=== PATIENT | female | born 1970 | race Two or more races ===

== ENCOUNTER 2024-08-29 12:10 | Day surgery (SDC) | payer MEDICAID, SELFPAY ==
[2024-08-27 13:59] LABS: HCG Qualitative,Urine Negative
[2024-08-28 12:31] VITALS: BMI 32.2
[2024-08-29] VITALS (22 sets, daily range): BP systolic 121–191; BP diastolic 71–108; PULSE 63–76; RESP 16–20; TEMP 36.5–36.7; O2SAT 98–100; BMI 32.4
[2024-08-29] MEDS: fentaNYL CIT INJ 50 mCg/ML AMP 2ML (ASD USE ONLY) IV ×2 (14:17→14:28)
[2024-08-29] MEDS: MIDAZOLAM INJ 1 MG/ML VIAL 2 ML (ASD USE ONLY) 2 MG IV (14:17)
--- NOTE | 2024-08-29 15:33 | SUR.PHASEII ---
PATIENT INTO RECOVERY WITH NO ACUTE DISTRESS NOTED, V/S STABLE, PATIENT SMILING, REPOSITIONED FOR COMFORT. PATIENT PASSING FLATUS. REPORT RECEIVED FROM DIONNA HEATON.
== END 2024-08-29 16:07 | disposition home or self-care (01) ==
PROVIDERS: PCP Physician Assistant; Referring Provider Surgery; Visit Provider Surgery
PROC: 0DBE8ZX Excision of Large Intestine, Via Natural or Artificial Opening Endoscopic, Diagnostic (ICD-10-PCS; CPT 45380; principal; 2024-08-29 14:30)
DX: C18.7 Malignant neoplasm of sigmoid colon (principal); D12.0 Benign neoplasm of cecum; K63.5 Polyp of colon
CPT/HCPCS: 45385; 81025; A4217; A4649; J2250; J3010

== ENCOUNTER → 2024-10-03 | Outpatient (CLI) | payer MEDICAID, SELFPAY ==
--- NOTE | 2024-10-03 | XR_ITS ---
Examination: CT abdomen with intravenous contrast CT pelvis with intravenous contrast 2-D coronal reconstructions 2-D sagittal reconstructions Date and time of exam:October 03, 2024 0951 hours INDICATIONS: Diagnosis malignant neoplasm colon August 2024 staging. CTDI: vol (mGy) 16.9 DLP: (mGycm) 560 Technique: Multiple axial sections of the abdomen and pelvis have been obtained. 64 slice high-resolution scanner used. 3 mm axial sections have been obtained, post intravenous injection 60 cc [id number] 2-D sagittal, coronal reconstructions obtained. Low dose protocols were performed. One or more of the following dose reduction techniques were used; automated exposure control, adjustment of the mA and/or KV according to patient size, use of iterative reconstruction technique. Findings: No focal liver lesions or biliary tract dilatation Spleen is not enlarged No gallstones No pancreatic or adrenal mass No hydronephrosis No abdominal or pelvic lymphadenopathy No pelvic mass Urinary bladder intact Moderate osteopenia IMPRESSION: No focal liver lesions No abdominal or pelvic lymphadenopathy Consider PET CT scan staging follow-up
[2024-10-03 09:06] LABS: HCG Qualitative,Urine Negative
== END | disposition home or self-care (01) ==
LOC: SCAT 08:59 → CCTX 09:04
PROVIDERS: PCP Physician Assistant; Referring Provider Surgery; Visit Provider Surgery
DX: C18.0 Malignant neoplasm of cecum (principal); Z32.00 Encounter for pregnancy test, result unknown
CPT/HCPCS: 74177; 81025; A4649; Q9967

== ENCOUNTER 2024-10-30 12:03 | Inpatient (IN) | payer MEDICAID, SELFPAY ==
[2024-10-26 06:59] VITALS: BMI 32.5
[2024-10-26 09:10] LABS: Basophils # (Auto) 0.1 Thou/mm3 (0.0-0.2); Basophils % (Auto) 1 % (0-2.5); Eosinophils # (Auto) 0.3 Thou/mm3 (0.0-0.5); Eosinophils % (Auto) 4 % (0-10); Hematocrit 44.4 % (36.0-46.0); Hemoglobin 14.9 g/dL (12.0-16.0); Immature Granulocytes % (Auto) 0 % (0-0); Immature Granulocytes Auto 0.03 Thou/mm3 (0.00-0.00); Lymphocytes # (Auto) 2.7 Thou/mm3 (1.0-4.8); Lymphocytes % (Auto) 32 % (10-50); Mean Corpuscular HGB Conc 33.6 g/dl (31.0-37.0); Mean Corpuscular Volume 86 fL (80-100); Monocytes # (Auto) 0.4 Thou/mm3 (0.0-0.8); Monocytes % (Auto) 5 % (0-12); Neutrophils # (Auto) 4.7 Thou/mm3 (1.8-7.7); Neutrophils % (Auto) 58 % (37-80); Nucleated Red Blood Cell % 0 /100 WBC (0); Platelet Count 232 Thou/mm3 (140-440); RDW Standard Deviation 40.4 fL (36.4-46.3); Red Blood Count 5.14 Miln/mm3 (4.00-5.20); White Blood Count 8.2 Thou/mm3 (3.6-11.0)
[2024-10-26 09:25] LABS: Alanine Aminotransferase 21 U/L (10-49); Albumin, Serum 4.6 gm/dL (3.5-5.0); Albumin/Globulin Ratio 1.5 (1.2-2.2); Alkaline Phosphatase 72 U/L (46-116); Anion Gap 8 (7-16); Aspartate Amino Transferase 25 U/L (0-34); BUN/Creatinine Ratio 13 Ratio (12-20); Bilirubin,Total 0.4 mg/dL (0.3-1.2); Blood Urea Nitrogen 9 mg/dL (9-23); Calcium 9.6 mg/dL (8.3-10.6); Calcium (Corrected) 9.6 mg/dL (8.5-10.1); Carbon Dioxide 28.2 mMol/L (20.0-31.0); Chloride 108 mMol/L (98-107); Creatinine (Component) 0.7 mg/dL (0.6-1.3); Estimated Creatinine Clearance 81.8 mL/min (>60); Globulin 3.1 gm/dL (2.3-3.5); Glucose 91 mg/dL (74-106); Osmolality,Calculated 285 (275-295); Potassium 4.2 mMol/L (3.4-5.1); Sodium 144 mMol/L (136-145); Total Protein 7.7 gm/dL (5.7-8.2); eGFR > 60 See Note
[2024-10-26 09:30] LABS: Partial Thromboplastin Time 29.7 Seconds (22.0-36.0); Prothrombin Time 11.4 Seconds (9.0-12.2)
[2024-10-30] VITALS (21 sets, daily range): BP systolic 125–166; BP diastolic 71–94; PULSE 53–82; RESP 12–97; TEMP 36.2–36.8; O2SAT 95–100; BMI 34.0; BMI 32.4
[2024-10-30] MEDS: RINGERS LACTATED 1000 ML 1,000 ML 20 ML IV (07:42)
--- NOTE | 2024-10-30 08:15 | CHAP ---
Cisco's daughter translated for me. I prayed with patient before her procedure.
--- NOTE | 2024-10-30 11:46 | SUR.PHASEI ---
pt received from OR in recovery bay 5. pt obtunded, breathing unlabored on oxymask 8l, oral airway in place. v/s stable. pt dressing to abd cdi. report received from Cori HEATON and Dr. Davidson.
--- NOTE | 2024-10-30 12:28 | SUR.PHASEII ---
Received report on pt. s/p surgery from Judson HEATON. Pt. is resting, eyes closed, VSS, dressing to medial abdomen CDI, melendez catheter intact, pt. allowed to rest, awaiting room assignment.
[2024-10-30] MEDS: CEFOXITIN 2 GM in SODIUM CHLORIDE 0.9% (P) 50 ML IV (13:11)
--- NOTE | 2024-10-30 13:22 | SUR.PHASEII ---
pt able to tolerate ice chips without difficulty swallowing or nausea/vomiting.
[2024-10-30] MEDS: fentaNYL CIT INJ 50 mCg/ML AMP 2ML 25 MCG IV (14:01)
--- NOTE | 2024-10-30 16:14 | SUR.PHASEII ---
pt awake and alert, breathing unlabored on room air. v/s stable. pt dressing to abd cdi. report called to Yeny HEATON. pt will be transferred to room at this time.
[2024-10-30] MEDS: SODIUM CHLORIDE 0.9% 1000 ML 1,000 ML 100 ML IV (17:13)
[2024-10-30] MEDS: KETOROLAC INJ 30 MG/ML VIAL IVP (17:52)
[2024-10-30] MEDS: MORPHINE SULF INJ 10 MG/ML VIAL 4 MG IVP (20:31)
[2024-10-31] VITALS (8 sets, daily range): BP systolic 121–144; BP diastolic 65–86; PULSE 66–81; RESP 16–97; TEMP 35.7–36.8; O2SAT 93–97
[2024-10-31] MEDS: KETOROLAC INJ 30 MG/ML VIAL IVP ×2 (00:58→09:00)
[2024-10-31] MEDS: MORPHINE SULF INJ 10 MG/ML VIAL 4 MG IVP ×3 (01:53→22:14)
[2024-10-31 05:21] LABS: Basophils % (Auto) 0 % (0-2.5); Eosinophils % (Auto) 0 % (0-10); Hematocrit 37.4 % (36.0-46.0); Hemoglobin 12.9 g/dL (12.0-16.0); Immature Granulocytes % (Auto) 0 % (0-0); Immature Granulocytes Auto 0.06 Thou/mm3 (0.00-0.00); Lymphocytes # (Auto) 1.4 Thou/mm3 (1.0-4.8); Lymphocytes % (Auto) 10 % (10-50); Mean Corpuscular HGB Conc 34.5 g/dl (31.0-37.0); Mean Corpuscular Hemoglobin 29.4 pg (25.0-35.0); Mean Corpuscular Volume 85 fL (80-100); Monocytes # (Auto) 0.6 Thou/mm3 (0.0-0.8); Monocytes % (Auto) 4 % (0-12); Neutrophils # (Auto) 12.5 Thou/mm3 (1.8-7.7); Neutrophils % (Auto) 86 % (37-80); Nucleated Red Blood Cell % 0 /100 WBC (0); Platelet Count 222 Thou/mm3 (140-440); RDW Standard Deviation 39.7 fL (36.4-46.3); Red Blood Count 4.39 Miln/mm3 (4.00-5.20); White Blood Count 14.6 Thou/mm3 (3.6-11.0)
[2024-10-31] MEDS: SODIUM CHLORIDE 0.9% 1000 ML 1,000 ML 100 ML IV ×3 (05:35→22:14)
[2024-10-31 05:41] LABS: Anion Gap 10 (7-16); Carbon Dioxide 21.8 mMol/L (20.0-31.0); Chloride 107 mMol/L (98-107); Potassium 3.6 mMol/L (3.4-5.1); Sodium 139 mMol/L (136-145)
--- NOTE | 2024-10-31 11:52 | PC.SS ---
Patient Adele Hill is a 54 Year old female admitted for Sigmoid Colon Resection. SS met with patient at bedside to complete initial assessment, patient appeared to be alert and oriented. Patient reports she lives at home with her daughter, Kimberly Moon who she reports is surrogate decision maker [phone]. Patient reports her PCP is Sherlyn Dukes. Choice of pharmacy is [facility]. Patient reports that prior to admission she did not utilize any source of DME to assist with ambulation. Patient is able to complete all ADL's independently. At time of discharge patient will return home. Family will provide transportation. Next of Kin, Daughter Discharge plan: Home
--- NOTE | 2024-10-31 16:47 | PD.SURPROG ---
Documentation for date of: 10/31/24 Subjective Subjective Narrative: The patient is comfortable in the first today after surgery. She is tolerating pain with Exam Vital Signs Temp Pulse Resp BP Pulse Ox O2 Del Method O2 Flow Rate 97.6 F 68 16 144/86 H 96 Room Air 2 10/31/24 12:00 10/31/24 12:00 10/31/24 12:00 10/31/24 12:00 10/31/24 12:00 10/31/24 12:00 10/30/24 12:15 Vital signs are normal Routine Abdominal Exam Comments: Abdominal examination is benign Results Results: Laboratory Laboratory Narrative: Laboratory results show leukocytosis probably secondary to surgery Assessment & Plan Assessment Additional comments: Impression: Stable postoperative course Plan Plan: We shall DC IV and start her on clear liquids and increase ambulation.
--- NOTE | 2024-10-31 18:17 | PC.NURSE ---
Patient urinated and is walking the hallway with daughters assistance. Will continue to monitor patient.
[2024-11-01] VITALS (8 sets, daily range): BP systolic 120–134; BP diastolic 79–87; PULSE 62–78; RESP 16–98; TEMP 36.1–36.8; O2SAT 95–98
[2024-11-01 05:32] LABS: Basophils % (Auto) 0 % (0-2.5); Eosinophils % (Auto) 0 % (0-10); Hematocrit 34.1 % (36.0-46.0); Hemoglobin 11.6 g/dL (12.0-16.0); Immature Granulocytes % (Auto) 0 % (0-0); Immature Granulocytes Auto 0.04 Thou/mm3 (0.00-0.00); Lymphocytes # (Auto) 2.4 Thou/mm3 (1.0-4.8); Lymphocytes % (Auto) 21 % (10-50); Mean Corpuscular Hemoglobin 29.4 pg (25.0-35.0); Mean Corpuscular Volume 86 fL (80-100); Monocytes # (Auto) 0.6 Thou/mm3 (0.0-0.8); Monocytes % (Auto) 5 % (0-12); Neutrophils # (Auto) 8.5 Thou/mm3 (1.8-7.7); Neutrophils % (Auto) 73 % (37-80); Nucleated Red Blood Cell % 0 /100 WBC (0); Platelet Count 186 Thou/mm3 (140-440); RDW Standard Deviation 40.3 fL (36.4-46.3); Red Blood Count 3.95 Miln/mm3 (4.00-5.20); White Blood Count 11.6 Thou/mm3 (3.6-11.0)
[2024-11-01] MEDS: MORPHINE SULF INJ 10 MG/ML VIAL 4 MG IVP ×3 (08:02→19:10)
--- NOTE | 2024-11-01 09:55 | PC.SS ---
SS follow up note; SS was contacted by patient's nurse Bryanna reported that Patient's daughter would like to speak to SS. SS met with patient's daughter, Kimberly and she informed SS that she would like patient to transition to hospice services. SS asked patient's daughter if she had a preference in regards to hospice Agency and patient's daughter reported she did not. SS informed her that the hospital utilizes a rotation for the day and if she would be agreeable to have the hospice agency of the day follow patient. Patient's daughter verbalized understanding and is agreeable to have [facility] follow patient. Patient's daughter would like patient to discharge to SNF, however SS contacted Becca from [facility] and she reported they do not have a hospice bed available. SS updated patient's daughter and she would like for to submit to other facilities. will submit hospice referral and SNF referral through [facility]. SS updated Dr. Yeager. Transfer was cancelled.
--- NOTE | 2024-11-01 11:35 | PD.SURPROG ---
Documentation for date of: 11/01/24 Subjective Subjective Narrative: The patient is feeling better and has less pain. She is passing gas and had a bowel movement early this morning. Exam Vital Signs Temp Pulse Resp BP Pulse Ox O2 Del Method O2 Flow Rate 97.2 F 78 22 H 134/87 H 98 Room Air 2 11/01/24 04:00 11/01/24 07:36 11/01/24 07:36 11/01/24 04:00 11/01/24 04:00 11/01/24 04:00 11/01/24 00:00 Her vital signs are normal Routine Abdominal Exam Comments: Abdominal examination showed that the hipolito are in place and she has bowel sounds Results Results: Laboratory Laboratory Narrative: Laboratory workup shows WBC returning to normal level Assessment & Plan Assessment Additional comments: Impression: Stable postoperative course following sigmoid colon resection Plan Plan: We shall advance diet to regular diet and then if she tolerates it well hopefully we can discharge her tomorrow.
[2024-11-02] VITALS: BP 107/78; PULSE 92; RESP 18; TEMP 36.5; O2SAT 95
[2024-11-02] MEDS: KETOROLAC INJ 30 MG/ML VIAL IVP (03:31)
[2024-11-02 04:00] VITALS: BP 130/88; PULSE 77; RESP 18; TEMP 36.2; O2SAT 96
[2024-11-02 08:00] VITALS: BP 116/78; PULSE 80; RESP 17; TEMP 36.2; O2SAT 98
--- NOTE | 2024-11-02 11:40 | CHAP ---
Patient was visited by the Spiritual Care Volunteer who prayed for them. (Volunteer was in the hospital from c 10:09-11:40)
[2024-11-02 12:00] VITALS: BP 124/90; PULSE 69; RESP 18; TEMP 36.3; O2SAT 95
[2024-11-02] MEDS: MORPHINE SULF INJ 10 MG/ML VIAL 4 MG IVP (13:41)
--- NOTE | 2024-11-02 14:18 | PD.SURPROG ---
Documentation for date of: 11/02/24 Subjective Subjective Narrative: Patient is tolerating diet and having regular bowel movements Exam Vital Signs Temp Pulse Resp BP Pulse Ox O2 Del Method O2 Flow Rate 97.4 F 69 18 124/90 H 95 Nasal Cannula 1 11/02/24 12:00 11/02/24 12:00 11/02/24 12:00 11/02/24 12:00 11/02/24 12:00 11/02/24 12:00 11/02/24 12:00 Her vital signs are normal Routine Abdominal Exam Comments: Abdominal examination is negative Assessment & Plan Assessment Additional comments: Impression: Stable postoperative course following sigmoid colon resection Plan Plan: We shall discharge the patient today and follow her up in my office next Tuesday
--- NOTE | 2024-11-02 21:34 | PD.SUROPNT ---
Date of Procedure 10/30/24 Pre Op Diagnosis Invasive adenocarcinoma in the polyp of the sigmoid colon 40 cm from the anal verge Post Op Diagnosis Same Procedure Explored laparotomy and sigmoid colon resection and primary anastomosis Incidental appendectomy Findings Patient is found to have a nonpalpable lesion over the sigmoid colon and I identified this area because of the tattooing done during the colonoscopy. At the time I removed a fair amount of polyps but I had a strong suspicion that this lesion may be malignant and therefore tattooing was performed with a spot marker at the time of colonoscopy. Patient did not have any liver metastasis or any peritoneal nodules Procedure Description After the patient was brought to the operating room she was given 2 g of Mefoxin. She underwent endotracheal intubation and abdomen was prepped with ChloraPrep solution and draped in a sterile manner. Charlton catheter was inserted. Timeout was performed. Then a lower midline incision was made starting from the umbilicus down towards the pubic symphysis. After entering abdominal cavity I explored the abdomen and found out that sigmoid colon that was tattooed was redundant and I did not have to mobilize the splenic flexure. I felt the resection could be satisfactorily performed on the anastomosis can be accomplished without tension. I started making incision on the medial side of the sigmoid colon at the aortic bifurcation and I isolated the inferior mesenteric artery. This was ligated doubly with 0 silk and divided. Then I mobilized the sigmoid colon bilateral dissection avoiding injury to the left ureter. I used harmonic fidelia to control the mesenteric bleeding. Then I used a JOSE ALFREDO 55 to divide the sigmoid colon distally giving a good margin from the tattooed site. Then I performed the same thing on the superior margin. A wedge of mesentery was removed using harmonic fidelia. Then the sigmoid colon was removed with measured about 7 inches approximately in length. Then the end of the colon was anastomosed easily using 3-0 silk suture for serosal layer and 3-0 chromic for the inner layer for the bowel wall. At the end I placed another low serosal layer anteriorly to complete the anastomosis. At the end the anastomosis was palpated and was found to be patent. Then the rent in the mesentery was closed with a running 0 Vicryl. I also performed incidental appendectomy by dividing the mesoappendix with harmonic fidelia and tying the base with 2-0 silk. Then the end was divided and coagulated with cautery. Then wound was irrigated extensively and checked for the bleeding points. Then I closed the peritoneum in a running 0 PDS. Then the anteriorly the fascia was closed with #1 strata fix. The subcutaneous tissue was closed with 3-0 chromic and injected large amounts of Marcaine and the skin was closed with hipolito. Dressing was applied with Adaptic and 4 x 4 gauze and patient tolerated the procedure well and returned to recovery room in stable condition. At the end of the procedure I opened the sigmoid colon which was tattooed and found no mucosal lesion. This was surprised to me because I felt that there should be some residual lesion at the site of polypectomy and biopsy. But none was found. I asked the pathologist to look at this and he was not sure that there was any residual lesion also. But he will do permanent section and make a report. I strongly felt that the area involved has been resected because it has been more by tattooing. This lesion is not palpable on the any further attempt to resect additional sigmoid colon would be difficult and not indicated at this time. I entertained the possibility that the patient may require another colonoscopy only if there is any lesion seen she may require another surgery. But at this time because I was certain about the location of the polyp I did not do any further exploration I also performed Anesthesia GETA Pathology / specimen Other (Sigmoid colon containing the polyp with adenocarcinoma) Estimated Blood Loss 150 Surgeon Juliet Shelton MD Surgical Staff Operation Date: 10/30/24 08:15 Case Staff Anesthesiologist: Garrett Davidson RN First Assistant: Kaylee Vergara
--- NOTE | 2024-11-05 13:53 | ESDS_ITS ---
RE: PATRIC AMIN : 1970 DATE OF ADMISSION: 10/30/2024 DATE OF DISCHARGE: 11/02/2024 15:47 DATE OF ADMISSION: 10/30/2024 DATE OF DISCHARGE: 11/02/2024 FINAL DIAGNOSIS: Invasive adenocarcinoma of the sigmoid colon. PROCEDURE DONE: Sigmoid colon resection. REASON FOR ADMISSION: This patient was admitted because of biopsy-proven sigmoid colon carcinoma seen at 40 cm from the anal verge during colonoscopy 2 months ago and I tattooed the area at the site of the polypectomy in sigmoid colon. The patient was admitted after mechanical and chemical bowel prep with antibiotic. She underwent sigmoid colon resection and primary anastomosis. Her postoperative course was uneventful and the patient was discharged on third postoperative day. At the time of discharge, she was tolerating regular diet and was having normal bowel functions. The patient will be seen in my office for a follow-up on Tuesday11/09/2024. At the time of discharge, he was given Point Clear 5/325 about 20 tablets for pain control. DT: 14:25:07 TT: 21:34:00 Ref: [id number] - TID: [id number] MTDD
== END 2024-11-02 15:47 | disposition home or self-care (01) | DRG 231 ==
LOC: S3NX 10-31 07:18
PROVIDERS: Admitting Provider Surgery; PCP Physician Assistant; Referring Provider Surgery; Visit Provider Surgery
PROC: 0DTN0ZZ Resection of Sigmoid Colon, Open Approach (ICD-10-PCS; principal; 2024-10-30 08:00)
DX: C18.7 Malignant neoplasm of sigmoid colon (principal); E66.9 Obesity, unspecified; Z68.31 Body mass index [BMI] 31.0-31.9, adult
CPT/HCPCS: 36415; 80051; 80053; 85025; 85610; 85730; 94664; A4217; A4649; J0131; J0694; J1100; J1885; J2250; J2270; J2405; J2704; J3010; J3490; J7030; J7050; J7120

== ENCOUNTER 2025-03-07 13:40 | Day surgery (SDC) | payer MEDICAID, SELFPAY ==
[2025-03-06 12:17] VITALS: BMI 36.8
[2025-03-07] VITALS (22 sets, daily range): BP systolic 122–195; BP diastolic 75–129; PULSE 56–93; RESP 12–25; TEMP 36.4–36.9; O2SAT 94–100; BMI 30.8
[2025-03-07] MEDS: RINGERS LACTATED 1000 ML 1,000 ML 125 ML IV (14:48)
[2025-03-07] MEDS: fentaNYL CIT INJ 50 mCg/ML AMP 2ML (ASD USE ONLY) IVP ×3 (14:48→15:53)
[2025-03-07] MEDS: MIDAZOLAM INJ 1 MG/ML VIAL 2 ML (ASD USE ONLY) 2 MG IVP ×3 (14:50→15:53)
[2025-03-07] MEDS: hydrALAZINE INJ 20 MG/ML VIAL 10 MG IVP (15:05)
[2025-03-07] MEDS: ONDANSETRON INJ 2 MG/ML INJ 2 ML 4 MG IVP (15:12)
== END 2025-03-07 16:54 | disposition home or self-care (01) ==
PROVIDERS: PCP Physician Assistant; Referring Provider Surgery; Visit Provider Surgery
PROC: 0DBE8ZX Excision of Large Intestine, Via Natural or Artificial Opening Endoscopic, Diagnostic (ICD-10-PCS; CPT 45380; principal; 2025-03-07 13:00)
DX: Z12.11 Encounter for screening for malignant neoplasm of colon (principal); D12.4 Benign neoplasm of descending colon; D12.5 Benign neoplasm of sigmoid colon; K63.5 Polyp of colon
CPT/HCPCS: 45380; A4649; J0360; J2250; J2405; J3010; J7120

== ENCOUNTER 2025-04-02 10:19 | Outpatient (RCR) | payer MEDICAID, SELFPAY ==
--- NOTE | 2025-04-02 13:54 | CTCCONSULT_ITS ---
Abdifatah Chapman [facility] [address] [place], [place] [address] Consultation Note Date: 04/02/2025 MR#: [id number] Name: PATRIC ROGERS : 1970 Dx: C18.7 Malignant neoplasm of sigmoid colon Attending physician. Sherlyn Perales [facility] Referring physician. Esteban Azul MD Reason for consultation. Patient with sigmoid colon adenocarcinoma resection referred for adjuvant therapy at the cancer treatment [place]. History of Present Illness: Patient is a 55-year-old lady who on screening colonoscopy 08/29/2024 found to have polyps in several areas of the colon. Sigmoid colon polyp revealed invasive adenocarcinoma well-differentiated with no loss of expression in all 4 mismatch repair proteins. Polyps removed from the cecum and ascending colon were negative for malignancy or high-grade dysplasia. On 10/30/2024 underwent exploratory laparotomy sigmoid colon resection and primary anastomosis performed. According to op note there was a nonpalpable lesion over the sigmoid colon which was identified because of the tattooing done during colonoscopy. There was no liver mets or peritoneal nodules noted. Final path G1 well-differentiated adenocarcinoma greatest aggregate dimension 5.5 cm with invading at least into the submucosa with no perineural invasion and 1 of 13 lymph nodes positive for mets. pT1pN1. Testing for mismatch repair no loss of nuclear expression. Appendix removed was benign. Dr. Orellana stated that patient was reluctant to have chemo referral after initial surgery. On 03/07/2025 patient underwent colonoscopy with additional polyps were noted in descending colon and 2 others on the sigmoid region which were all benign. Preop abdomen pelvis 10/03/2024 showed no focal lesions abdominal pelvic lymphadenopathy. Past medical history. Denies other than above Meds. 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 Denies cancer in family Review of Systems: Noncontributory Physical Exam: General: Adequately nourished appearing lady in no acute distress HEENT: Atraumatic normocephalic extraocular is intact no oral lesions no cervical or supraclavicular adenopathy CV: Chest clear that she has a heart regular rate and rhythm ABD: Soft no organomegaly well-healed abdominal scar EXT: No signs of clubbing edema Assessment: 1. Patient with stage IIIA pT1pN1 no loss of expression mismatch repair. Status post sigmoid colon resection primary anastomosis 10/30/2024 Dr Orellana 2. Adjuvant chemo apparently delayed by some reluctance on patient's part. Will have patient see Dr. Echo tovar. 2. Port placement Dr. Orellana 3. PET scan for staging. 4. Thank you for referring patient to the cancer treatment center. Electronically signed by: Duncan Rincon MD, DABR 04/02/2025 1:52 PM
== END 2025-04-11 23:59 | disposition home or self-care (01) ==
LOC: SCTC 10:19
PROVIDERS: PCP Physician Assistant; Referring Provider Surgery; Visit Provider Radiology Therapeutic Radiology
DX: C18.7 Malignant neoplasm of sigmoid colon (principal)
CPT/HCPCS: 99213; G0463

== ENCOUNTER 2025-05-10 10:09 | Outpatient (RCR) | payer MEDICAID, SELFPAY ==
--- NOTE | 2025-05-02 10:58 | CTCCONSULT_ITS ---
Patient: PATRIC ROGERS : 1970 MR#: [id number] Page 3 of 5 CONSULTATION NOTE DATE OF CONSULTATION: 05/02/2025 NAME: PATRIC ROGERS ACCOUNT: [id number] : 1970 AGE: 55 REFERRING PHYSICIAN: Sherlyn Grant MD PRIMARY PHYSICIAN: Sherlyn Grant MD REASON FOR VISIT: Colon cancer ONCOLOGY HISTORY: DIAGNOSIS: Malignant neoplasm of sigmoid colon [ICD10] C18.7; Malignant neoplasm of ascending colon [ICD10] C18.2 DATE OF DIAGNOSIS: 10/2024 STAGE/TNM: IIIA T1 N1 M0 TREATMENT HISTORY: Care?Plan Start?Date Cycle Day Intent mFOLFOX-6?-?5FU?400?+?2400?CIV,?LVR?400,OXALIplat?85 05/02/2025 1 14 Curative?(adjuvant) HISTORY OF PRESENT ILLNESS: 55-year-old female with new diagnosis of colon cancer . patient had screening colonoscopy and was diagnosed with cancer . OTHER MEDICAL HISTORY/CONDITIONS: Adenocarcinoma sigmoid colon - dx 09/08/2024 Exploratory Laporotomy; sigmoid resection and promary anastomosis; incidental appendectomy - FAMILY HISTORY: Patient?denies?family?cancer?history. SOCIAL HISTORY: Occupational?History:?Work at [employer] Education?Level:?Completed something less than 8th grade Marital?Status:? 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 5 YRS C NORPLANT X 3 YRS :?3 Live?Births:?3 Age?1st?:?23 MEDICATIONS: 1. No Medications Medications Last Reconciled by Nell Liu RN on 05/02/2025 ALLERGIES: No Known Drug Allergies REVIEW OF SYSTEMS: A complete 14-point review of systems was performed and is negative except as noted in interval history. PHYSICAL EXAMINATION: VITAL SIGNS: Temperature?99.2, B/P?133/82, Height?59?inches, Oxygen?Saturation?95% Weight?161?lbs (Change?since?04/02/25:?1?lbs) PAIN: 0 - No pain ECOG Performance Status: 1 - Symptomatic; ambulatory; restricted in strenuous activity GENERAL APPEARANCE: Appears well, in no apparent distress, appropriately interactive. HEENT: Normocephalic, no temporal wasting, normal conjunctiva, no scleral icterus, normal hearing, lips without lesions, neck normal range of motion. CARDIOVASCULAR: Not assessed. PULMONARY: Normal respiratory effort, no respiratory distress or use of accessory muscles, speaking in full sentences, no tachypnea. EXTREMITIES: No pedal edema or cyanosis. SKIN: Normal skin appearance. NEUROLOGIC: Alert and oriented x4. PSHYCHIATRIC: Appropriate affect, mood normal, behavior normal, intact thought and speech. LABORATORY DATA: I have personally reviewed and interpreted each of the patient?s relevant lab tests, abnormal findings are below: Date ASSESSMENT/PLAN: Stage 3 A colon adenocarcinoma Need adjuvant therapy with folfox or capeox Port placemnt Discussed side effects of chemotherapy Ctart chemotherapy Naterra for mrd ORDERS: Order # Description [id number] + CEA [id number] Infusion 5 Hours [id number] Discontinue CIV Pump [id number] CBC + Comprehensive Metabolic Panel + CEA [id number] Lab Appointment [id number] Follow Up Appointment [id number] Infusion 5 Hours [id number] Discontinue CIV Pump [id number] CBC + Comprehensive Metabolic Panel + CEA [id number] Lab Appointment [id number] Follow Up Appointment [id number] Infusion 5 Hours [id number] Discontinue CIV Pump [id number] CBC + Comprehensive Metabolic Panel + CEA [id number] Lab Appointment [id number] Follow Up Appointment [id number] Infusion 5 Hours [id number] Discontinue CIV Pump [id number] CBC + Comprehensive Metabolic Panel + CEA [id number] Lab Appointment [id number] Follow Up Appointment [id number] Infusion 5 Hours [id number] Discontinue CIV Pump [id number] CBC + Comprehensive Metabolic Panel + CEA [id number] Lab Appointment [id number] Follow Up Appointment [id number] Infusion 5 Hours [id number] Discontinue CIV Pump [id number] CBC + Comprehensive Metabolic Panel + CEA [id number] Lab Appointment [id number] Follow Up Appointment [id number] Infusion 5 Hours [id number] Discontinue CIV Pump [id number] CBC + Comprehensive Metabolic Panel + CEA [id number] Lab Appointment [id number] Follow Up Appointment [id number] Infusion 5 Hours [id number] Discontinue CIV Pump [id number] CBC + Comprehensive Metabolic Panel + CEA [id number] Lab Appointment [id number] Follow Up Appointment [id number] Infusion 5 Hours [id number] Discontinue CIV Pump [id number] CBC + Comprehensive Metabolic Panel + CEA [id number] Lab Appointment [id number] Follow Up Appointment [id number] Infusion 5 Hours [id number] Discontinue CIV Pump [id number] CBC + Comprehensive Metabolic Panel + CEA [id number] Lab Appointment [id number] Follow Up Appointment [id number] Infusion 5 Hours [id number] Discontinue CIV Pump [id number] CBC + Comprehensive Metabolic Panel + CEA [id number] Lab Appointment [id number] Follow Up Appointment [id number] Infusion 5 Hours [id number] Discontinue CIV Pump [id number] CBC + Comprehensive Metabolic Panel + CEA [id number] Lab Appointment [id number] Follow Up Appointment RETURN TO CLINIC: I reviewed the diagnosis, prognosis, and recommended treatment/procedure options with the patient (and/or 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 We also discussed the option of no treatment and the possibility of clinical trial participation, if applicable. All questions were addressed, and they demonstrated understanding. They provided informed consent to proceed with the proposed plan of care. BILLING AND COMPLIANCE: I reviewed external records from providers outside my specialty as summarized above. I spent a total of 50 minutes on this patient?s care on the day of their visit excluding time spent related to any billed procedures. This time includes time spent with the patient as well as time spent documenting in the medical record, reviewing patients records and tests, obtaining history, placing orders, communicating with other healthcare professionals, counseling the patient, family or caregiver, and/or care coordination for the diagnoses above. Electronically Signed by: Ty Dodge MD T: 10:56 AM CC: Juliet?OCHOA Shelton PCP: Sherlyn Grant Referring: Sherlyn Grant This document was completed utilizing speech recognition software. Grammatical errors, random word insertions, pronoun errors, and incomplete sentences are an occasional consequence of this system due to software limitations, ambient noise, and hardware issues. Any formal questions or concerns about the content, text or information contained within the body of this dictation should be directly addressed to the provider for clarification.
== END 2025-05-12 23:59 | disposition home or self-care (01) ==
LOC: SCTC 10:09
PROVIDERS: PCP Physician Assistant; Referring Provider Physician Assistant; Visit Provider Internal Medicine Hematology & Oncology
DX: C18.7 Malignant neoplasm of sigmoid colon (principal)
CPT/HCPCS: 99213; G0463

== ENCOUNTER → 2025-05-21 | Outpatient (CLI) | payer MEDICAID, SELFPAY ==
[2025-05-21 10:24] LABS: HCG Qualitative,Urine Negative
--- NOTE | 2025-05-21 12:30 | XR_ITS ---
EXAMINATION: PET/CT FUSION SKULL TO THIGH EXAM DATE AND TIME: May 21, 2025 1313 hours, comparison CT abdomen pelvis October 03, 2024 INDICATIONS: Diagnosis malignant neoplasm colon August 2024, staging CTDI:vol (mGy) 6.09 DLP: (mGycm) 556.39 PROCEDURE: 16.4 mCi FDG was administered intravenously To allow for distribution and uptake of radiotracer, the patient was allowed to rest quietly in a shielded room. Imaging was performed on an integrated 16-slice PET/CT scanner, with scanning from the skull base to the mid thigh. Serum blood glucose at the time of the injection was measured 101 mg/dL. CT scanning was performed without oral or intravenous contrast material. FINDINGS: Head and Neck: There is no francisca hypermetabolism in the neck. The visualized portions of the brain are normal in appearance on CT. Chest: There is no francisca hypermetabolism in the chest. There are no pulmonary nodules. Abdomen and Pelvis: Suspicious for weakly hypermetabolic 12 mm right common iliac lymph node image 167 Musculoskeletal: Marrow uptake is within normal range. IMPRESSION: Suspicious for weakly hypermetabolic 12 mm right common iliac lymph node, recommend CT scan abdomen pelvis post intravenous contrast follow-up
== END | disposition home or self-care (01) ==
PROVIDERS: PCP Physician Assistant; Referring Provider Radiology Therapeutic Radiology; Visit Provider Radiology Therapeutic Radiology
DX: C18.7 Malignant neoplasm of sigmoid colon (principal); Z32.00 Encounter for pregnancy test, result unknown
CPT/HCPCS: 78815; 81025; A9552

== ENCOUNTER 2025-06-07 12:35 | Day surgery (SDC) | payer MEDICAID, SELFPAY ==
[2025-06-06 07:50] VITALS: BMI 33.4
[2025-06-06 09:14] LABS: Basophils # (Auto) 0.0 Thou/mm3 (0.0-0.2); Basophils % (Auto) 0 % (0-2.5); Eosinophils # (Auto) 0.5 Thou/mm3 (0.0-0.5); Eosinophils % (Auto) 7 % (0-10); Hematocrit 40.6 % (36.0-46.0); Hemoglobin 13.5 g/dL (12.0-16.0); Immature Granulocytes Auto 0.02 Thou/mm3 (0.00-0.00); Lymphocytes # (Auto) 2.0 Thou/mm3 (1.0-4.8); Lymphocytes % (Auto) 29 % (10-50); Mean Corpuscular HGB Conc 33.3 g/dl (31.0-37.0); Mean Corpuscular Hemoglobin 29.9 pg (25.0-35.0); Mean Corpuscular Volume 90 fL (80-100); Monocytes # (Auto) 0.4 Thou/mm3 (0.0-0.8); Monocytes % (Auto) 5 % (0-12); Neutrophils # (Auto) 4.1 Thou/mm3 (1.8-7.7); Neutrophils % (Auto) 58 % (37-80); Nucleated Red Blood Cell # 0.00 Thou/mm3 (0.00-0.00); Nucleated Red Blood Cell % 0 /100 WBC (0); Platelet Count 257 Thou/mm3 (140-440); RDW Standard Deviation 43.5 fL (36.4-46.3); Red Blood Count 4.51 Miln/mm3 (4.00-5.20); White Blood Count 7.0 Thou/mm3 (3.6-11.0)
[2025-06-06 09:21] LABS: Alanine Aminotransferase 40 U/L (10-49); Albumin, Serum 4.5 gm/dL (3.5-5.0); Albumin/Globulin Ratio 1.5 (1.2-2.2); Alkaline Phosphatase 77 U/L (46-116); Anion Gap 7 (7-16); Aspartate Amino Transferase 35 U/L (0-34); BUN/Creatinine Ratio 13 Ratio (12-20); Bilirubin,Total 0.4 mg/dL (0.3-1.2); Blood Urea Nitrogen 8 mg/dL (9-23); Calcium 9.2 mg/dL (8.3-10.6); Calcium (Corrected) 9.2 mg/dL (8.5-10.1); Carbon Dioxide 26.1 mMol/L (20.0-31.0); Chloride 108 mMol/L (98-107); Creatinine (Component) 0.6 mg/dL (0.6-1.3); Estimated Creatinine Clearance 95.8 mL/min (>60); Globulin 3.1 gm/dL (2.3-3.5); Glucose 94 mg/dL (74-106); Osmolality,Calculated 279 (275-295); Potassium 4.4 mMol/L (3.4-5.1); Sodium 141 mMol/L (136-145); Total Protein 7.6 gm/dL (5.7-8.2); eGFR > 60 See Note
[2025-06-06 09:22] LABS: INR 1.0 (0.9-1.3); Partial Thromboplastin Time 29.4 Seconds (22.0-36.0); Prothrombin Time 11.2 Seconds (9.0-12.2)
[2025-06-06 09:30] LABS: HCG,Qualitative Serum Negative
[2025-06-07] VITALS (8 sets, daily range): BP systolic 136–156; BP diastolic 70–98; PULSE 64–78; RESP 12–20; TEMP 36.6–36.8; O2SAT 95–100; BMI 32.5
--- NOTE | 2025-06-07 13:35 | XR_ITS ---
Examination: AP chest single view Technique: AP portable supine chest single view Date and time: March 07, 2025, 1600 hrs. Indications: Post Port-A-Cath insertion Findings: Right internal jugular Port-A-Cath tip right atrium No pneumothorax Parenchymal disease left upper lobe Normal heart size Impression: Right internal jugular Port-A-Cath line satisfactory position
--- NOTE | 2025-06-07 16:30 | SUR.PHASEI ---
Pt. arrived to recovery via gurney, eyes closed, VSS, responds to verbal commands, dressing to right side of neck and upper chest, sutures, 4x4 gauze and mediport tape intact, no active bleeding or redness noted, lung sounds clear, equal expansion nathaniel., pt. receiving 8 liters 02. Report on pt. received from Cori HEATON and John SOLIS.
--- NOTE | 2025-06-07 16:32 | ESOP_ITS ---
Date of Procedure 06/07/25 Pre Op Diagnosis Stricture of veins requiring chemotherapy for carcinoma of the colon Post Op Diagnosis Same Procedure Insertion of a Port-A-Cath using right jugular vein Findings Patient is found to have difficult subclavian vein which could not be accessed under ultrasonic guidance. Therefore right jugular was used for insertion of regular Port-A-Cath from [employer] Procedure Description After the patient was brought to the operating room he was placed in supine position. Site-Rite ultrasound was used to identify the right subclavian vein and I chose this for insertion of the Port-A-Cath. After the patient's chest and neck were prepped with chloreprep solution and draped I used a mini stick to get into the subclavian vein. I could not get into the vein and therefore I used a right jugular vein and then I passed a small guidewire measuring 0.018 inch in diameter into the vein. Then this was switched over to a catheter to accommodate larger guidewire measuring 0.035 inches in diameter which was basically a J-wire. Then I used a 9 [place] valved vessel dilator over the guidewire which was then pulled out. Then I introduced a 8 [place] polyurethane catheter from the [facility] and positioned it on the distal part of the superior vena cava. An x-ray was obtained to confirm the position of the tip. The tip was about 18 cm from the entry site. Then I made a small pocket 5 cm's below the entry site on the right chest below the clavicle to accommodate the port after injecting local anesthesia with 1% Xylocaine. Then I tunneled the polyurethane catheter from the entry site in the neck over the clavicle to this pocket in the chest wall and I connected it to regular port from [facility] called florencio using a catheter lock. Excellent blood return was obtained at the end of the procedure and this was flushed with heparinized saline. Then the port was attached to the chest wall muscle using 0 Ethibond sutures. Subcutaneous tissues was closed with 3-0 chromic and the skin by 5-0 nylon stitches. Dressing was applied with Adaptic and 4 x 4 and the patient tolerated the procedure well and left operating room in stable condition. Anesthesia other (General LMA) Pathology / specimen None Estimated Blood Loss 50 Surgeon Juliet Shelton MD Surgical Staff Operation Date: 06/07/25 15:45 Case Staff SAMPLE CUTTER: John Hwang
--- NOTE | 2025-06-07 17:35 | SUR.PHASEII ---
Pt. meets criteria for discharge, VSS, no c/o pain or nausea at this time, dressing to right side of neck CDI, no active bleeding or redness noted, pt. sitting up tolerating sips of water and jell-o. Pt.'s daughter at bedside, provided discharge instructions to pt. and pt.'s daughter, verbalized understanding. IV discontinued without complications. Pt. escorted to vehicle with all of belongings via w/c by staff.
== END 2025-06-07 17:35 | disposition home or self-care (01) ==
PROVIDERS: Anesthesiology; PCP Physician Assistant; Referring Provider Surgery; Visit Provider Surgery
PROC: (CPT 36571; principal; 2025-06-07 15:30)
DX: C18.9 Malignant neoplasm of colon, unspecified (principal); I87.1 Compression of vein; E66.9 Obesity, unspecified
CPT/HCPCS: 36571; 36415; 71046; 80053; 84703; 85025; 85610; 85730; A4649; C1788; C1894; J0131; J1885; J2250; J2704; J3010; J3490; J7999; J1596

== ENCOUNTER 2025-06-11 07:58 | Outpatient (RCR) | payer MEDICAID, SELFPAY ==
[2025-06-10 16:16] LABS: Basophils # (Auto) 0.0 Thou/mm3 (0.0-0.2); Basophils % (Auto) 0 % (0-2.5); Eosinophils # (Auto) 0.5 Thou/mm3 (0.0-0.5); Eosinophils % (Auto) 5 % (0-10); Hematocrit 38.1 % (36.0-46.0); Hemoglobin 12.9 g/dL (12.0-16.0); Immature Granulocytes Auto 0.03 Thou/mm3 (0.00-0.00); Lymphocytes # (Auto) 2.8 Thou/mm3 (1.0-4.8); Lymphocytes % (Auto) 28 % (10-50); Mean Corpuscular HGB Conc 33.9 g/dl (31.0-37.0); Mean Corpuscular Hemoglobin 30.2 pg (25.0-35.0); Mean Corpuscular Volume 89 fL (80-100); Monocytes # (Auto) 0.7 Thou/mm3 (0.0-0.8); Monocytes % (Auto) 6 % (0-12); Neutrophils # (Auto) 6.1 Thou/mm3 (1.8-7.7); Neutrophils % (Auto) 60 % (37-80); Nucleated Red Blood Cell # 0.00 Thou/mm3 (0.00-0.00); Nucleated Red Blood Cell % 0 /100 WBC (0); Platelet Count 231 Thou/mm3 (140-440); RDW Standard Deviation 42.1 fL (36.4-46.3); Red Blood Count 4.27 Miln/mm3 (4.00-5.20); White Blood Count 10.2 Thou/mm3 (3.6-11.0)
[2025-06-10 16:41] LABS: Alanine Aminotransferase 23 U/L (10-49); Albumin, Serum 4.3 gm/dL (3.5-5.0); Albumin/Globulin Ratio 1.5 (1.2-2.2); Alkaline Phosphatase 71 U/L (46-116); Anion Gap 9 (7-16); Aspartate Amino Transferase 22 U/L (0-34); BUN/Creatinine Ratio 17 Ratio (12-20); Bilirubin,Total 0.3 mg/dL (0.3-1.2); Blood Urea Nitrogen 12 mg/dL (9-23); Calcium 9.3 mg/dL (8.3-10.6); Calcium (Corrected) 9.3 mg/dL (8.5-10.1); Carbon Dioxide 24.5 mMol/L (20.0-31.0); Chloride 106 mMol/L (98-107); Creatinine (Component) 0.7 mg/dL (0.6-1.3); Globulin 2.8 gm/dL (2.3-3.5); Glucose 103 mg/dL (74-106); Osmolality,Calculated 277 (275-295); Potassium 4.1 mMol/L (3.4-5.1); Sodium 139 mMol/L (136-145); Total Protein 7.1 gm/dL (5.7-8.2); eGFR > 60 See Note
[2025-06-10 16:43] LABS: Carcinoembryonic Antigen 0.6 ng/mL (0.0-5.0)
[2025-06-11 08:55] LABS: Misc Send Out* See Sep Rpt
== END 2025-06-11 23:59 | disposition home or self-care (01) ==
LOC: SCTC 07:58
PROVIDERS: PCP Physician Assistant; Referring Provider Physician Assistant; Visit Provider Internal Medicine Hematology & Oncology
DX: Z51.11 Encounter for antineoplastic chemotherapy (principal); C18.7 Malignant neoplasm of sigmoid colon
CPT/HCPCS: 36591; 80053; 81232; 82378; 85025; 96367; 96368; 96411; 96413; 96415; 96416; A4216; J0640; J1100; J1434; J1642; J2405; J3490; J7050; J7060; J9190; J9263

== ENCOUNTER 2025-07-11 10:41 | Outpatient (RCR) | payer MEDICAID, SELFPAY ==
[2025-06-24 14:59] LABS: Basophils # (Auto) 0.0 Thou/mm3 (0.0-0.2); Basophils % (Auto) 0 % (0-2.5); Eosinophils # (Auto) 0.3 Thou/mm3 (0.0-0.5); Eosinophils % (Auto) 4 % (0-10); Hematocrit 37.4 % (36.0-46.0); Hemoglobin 13.0 g/dL (12.0-16.0); Immature Granulocytes Auto 0.03 Thou/mm3 (0.00-0.00); Lymphocytes # (Auto) 2.2 Thou/mm3 (1.0-4.8); Lymphocytes % (Auto) 29 % (10-50); Mean Corpuscular HGB Conc 34.8 g/dl (31.0-37.0); Mean Corpuscular Hemoglobin 30.6 pg (25.0-35.0); Mean Corpuscular Volume 88 fL (80-100); Monocytes # (Auto) 0.5 Thou/mm3 (0.0-0.8); Monocytes % (Auto) 6 % (0-12); Neutrophils # (Auto) 4.6 Thou/mm3 (1.8-7.7); Neutrophils % (Auto) 60 % (37-80); Nucleated Red Blood Cell # 0.00 Thou/mm3 (0.00-0.00); Nucleated Red Blood Cell % 0 /100 WBC (0); Platelet Count 229 Thou/mm3 (140-440); RDW Standard Deviation 40.8 fL (36.4-46.3); Red Blood Count 4.25 Miln/mm3 (4.00-5.20); White Blood Count 7.7 Thou/mm3 (3.6-11.0)
[2025-06-24 15:28] LABS: Alanine Aminotransferase 25 U/L (10-49); Albumin, Serum 4.5 gm/dL (3.5-5.0); Albumin/Globulin Ratio 1.7 (1.2-2.2); Alkaline Phosphatase 102 U/L (46-116); Anion Gap 10 (7-16); Aspartate Amino Transferase 23 U/L (0-34); BUN/Creatinine Ratio 17 Ratio (12-20); Bilirubin,Total 0.3 mg/dL (0.3-1.2); Blood Urea Nitrogen 10 mg/dL (9-23); Calcium 9.1 mg/dL (8.3-10.6); Calcium (Corrected) 9.1 mg/dL (8.5-10.1); Carbon Dioxide 23.6 mMol/L (20.0-31.0); Chloride 106 mMol/L (98-107); Creatinine (Component) 0.6 mg/dL (0.6-1.3); Globulin 2.7 gm/dL (2.3-3.5); Glucose 96 mg/dL (74-106); Osmolality,Calculated 278 (275-295); Potassium 3.9 mMol/L (3.4-5.1); Sodium 140 mMol/L (136-145); Total Protein 7.2 gm/dL (5.7-8.2); eGFR > 60 See Note
[2025-06-24 15:47] LABS: Carcinoembryonic Antigen 0.9 ng/mL (0.0-5.0)
--- NOTE | 2025-06-26 15:55 | CTCFLWUP_ITS ---
Patient: PATRIC ROGERS : 1970 Page 3 of 5 FOLLOW UP NOTE DATE OF SERVICE: 06/26/2025 NAME: PATRIC ROGERS ACCOUNT: [id number] : 1970 AGE: 55 INTERVAL HISTORY: Patient is doing well. She is tolerating chemotherapy well. Patient has minimal nausea. ONCOLOGY HISTORY: DIAGNOSIS: Malignant neoplasm of sigmoid colon [ICD10] C18.7; Malignant neoplasm of ascending colon [ICD10] C18.2 DATE OF DIAGNOSIS: 10/2024 STAGE/TNM: IIIA T1 N1 M0 TREATMENT HISTORY: Care?Plan Start?Date Cycle Day Intent mFOLFOX-6?-?5FU?400?+?2400?CIV,?LVR?400,OXALIplat?85 06/11/2025 1 14 Curative?(adjuvant) HISTORY OF PRESENT ILLNESS: 55-year-old female with new diagnosis of colon cancer . patient had screening colonoscopy and was diagnosed with cancer . OTHER MEDICAL HISTORY/CONDITIONS: Adenocarcinoma sigmoid colon - dx 09/08/2024 Exploratory Laporotomy; sigmoid resection and promary anastomosis; incidental appendectomy - FAMILY HISTORY: Patient?denies?family?cancer?history. 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 5 YRS C NORPLANT X 3 YRS :?3 Live?Births:?3 Age?1st?:?23 MEDICATIONS: 1. Compazine - 5 mg 5 mg Daily 2. fiber - 48.57 % As directed 3. Lidocaine Viscous - 2 % 10 mL Daily 4. Maalox Advanced - 200-200-20 mg/5 mL 20 mL Daily 5. nystatin - 100,000 unit/mL 10 mL Daily 6. [place] 3 - [phone] mg 1 Capsule Daily 7. ondansetron - 8 mg 8 mg Daily Medications Last Reconciled by Nell Liu RN on 05/02/2025 ALLERGIES: No Known Drug Allergies REVIEW OF SYSTEMS: A complete 14-point review of systems was performed and is negative except as noted in interval history. PHYSICAL EXAMINATION: VITAL SIGNS: PAIN: 0 - No pain ECOG Performance Status: 0 - Asymptomatic and fully active GENERAL APPEARANCE: Appears well, in no apparent distress, appropriately interactive. HEENT: Normocephalic, no temporal wasting, normal conjunctiva, no scleral icterus, normal hearing, lips without lesions, neck normal range of motion. CARDIOVASCULAR: Not assessed. PULMONARY: Normal respiratory effort, no respiratory distress or use of accessory muscles, speaking in full sentences, no tachypnea. EXTREMITIES: No pedal edema or cyanosis. SKIN: Normal skin appearance. NEUROLOGIC: Alert and oriented x4. PSHYCHIATRIC: Appropriate affect, mood normal, behavior normal, intact thought and speech. LABORATORY DATA: I have personally reviewed and interpreted each of the patient?s relevant lab tests, abnormal findings are below: Date 06/10/25 06/24/25 ??WHITE?BLOOD?COUNT?(Thou/mm3) ? 7.7 ??RED?BLOOD?COUNT?(Miln/mm3) ? 4.25 ??HEMOGLOBIN?(gm/dl) ? 13.0 ??HEMATOCRIT?(%) ? 37.4 ??PLATELET?COUNT?(Thou/mm3) ? 229 ??NEUTROPHILS?%,?AUTO?(%) ? 60 ??LYMPH?%,?AUTO?(%) ? 29 ??NEUTROPHILS,?AUTO?(Thou/mm3) ? 4.6 ??GLUCOSE,RANDOM?(mg/dL) 103 96 ??BLOOD?UREA?NITROGEN?(mg/dL) 12 10 ??CREATININE?(mg/dL) 0.70 0.60 ??SODIUM?(mmol/L) 139 140 ??POTASSIUM?(mmol/L) 4.1 3.9 ??CHLORIDE?(mmol/L) 106 106 ??CrCl?(CandG)?(ml/min) 108.22 127.03 ??AST/SGOT?(Unit/L) 22 23 ??ALT/SGPT?(Unit/L) 23 25 ??ALKALINE?PHOSPHATASE?(Unit/L) 71 102 ??BILIRUBIN,?TOTAL?(mg/dL) 0.3 0.3 ??PROTEIN?TOTAL?(gm/dl) 7.1 7.2 ??ALBUMIN,?SERUM?(gm/dl) 4.3 4.5 ??GLOBULIN?(gm/dl) 2.8 2.7 ??ALBUMIN/GLOBULIN?RATIO 1.5 1.7 ??CALCIUM,?SERUM?(mg/dL) 9.3 9.1 ??CALCIUM?SERUM?(CORRECTED)?(mg/dL) 9.3 9.1 ??CEA?(O*)?(ng/ml) ? 0.9 ASSESSMENT/PLAN: Stage 3 A colon adenocarcinoma Patient has been on FOLFOX Completed 2 treatments Tolerating well Continue FOLFOX Discussed nausea vomiting protocol Plant-based high-protein diet RTC in 6 to 8 weeks and earlier if any symptoms ORDERS: Order # Description [id number] Comprehensive Metabolic Panel - 12 + CBC with Auto Diff + CEA + Follow Up 2 Months [id number] [facility] Hereditary Cancer Test [id number] Discontinue CIV Pump [id number] CBC + Comprehensive Metabolic Panel + CEA [id number] Lab Appointment [id number] Follow Up Appointment [id number] Infusion 5 Hours [id number] Discontinue CIV Pump [id number] CBC + Comprehensive Metabolic Panel + CEA [id number] Lab Appointment [id number] Follow Up Appointment [id number] Infusion 5 Hours [id number] Discontinue CIV Pump [id number] CBC + Comprehensive Metabolic Panel + CEA [id number] Lab Appointment [id number] Follow Up Appointment [id number] Infusion 5 Hours [id number] Discontinue CIV Pump [id number] CBC + Comprehensive Metabolic Panel + CEA [id number] Lab Appointment [id number] Follow Up Appointment [id number] Infusion 5 Hours [id number] Discontinue CIV Pump [id number] CBC + Comprehensive Metabolic Panel + CEA [id number] Lab Appointment [id number] Follow Up Appointment [id number] Infusion 5 Hours [id number] Discontinue CIV Pump [id number] CBC + Comprehensive Metabolic Panel + CEA [id number] Lab Appointment [id number] Follow Up Appointment [id number] Infusion 5 Hours [id number] Discontinue CIV Pump [id number] CBC + Comprehensive Metabolic Panel + CEA [id number] Lab Appointment [id number] Follow Up Appointment [id number] Infusion 5 Hours [id number] Discontinue CIV Pump [id number] CBC + Comprehensive Metabolic Panel + CEA [id number] Lab Appointment [id number] Follow Up Appointment [id number] Infusion 5 Hours [id number] Discontinue CIV Pump [id number] CBC + Comprehensive Metabolic Panel + CEA [id number] Lab Appointment [id number] Follow Up Appointment [id number] Infusion 5 Hours [id number] Discontinue CIV Pump [id number] CBC + Comprehensive Metabolic Panel + CEA [id number] Lab Appointment [id number] Follow Up Appointment [id number] Infusion 5 Hours [id number] Discontinue CIV Pump [id number] CBC + Comprehensive Metabolic Panel + CEA [id number] Lab Appointment [id number] Follow Up Appointment RETURN TO CLINIC: I reviewed the diagnosis, prognosis, and recommended treatment/procedure options with the patient (and/or their legal jewelry sales representative), including the potential benefits, risks, side effects and alternative therapies. We also discussed the option of no treatment and the possibility of clinical trial participation, if applicable. All questions were addressed, and they demonstrated understanding. They provided informed consent to proceed with the proposed plan of care. BILLING AND COMPLIANCE: I reviewed external records from providers outside my specialty as summarized above. I spent a total of 50 minutes on this patient?s care on the day of their visit excluding time spent related to any billed procedures. This time includes time spent with the patient as well as time spent documenting in the medical record, reviewing patients records and tests, obtaining history, placing orders, communicating with other healthcare professionals, counseling the patient, family or caregiver, and/or care coordination for the diagnoses above. Electronically Signed by: Ty Dodge MD T: 3:53 PM CC: Juliet?Cat? PCP: Sherlyn Grant Referring: Sherlyn Grant This document was completed utilizing speech recognition software. Grammatical errors, random word insertions, pronoun errors, and incomplete sentences are an occasional consequence of this system due to software limitations, ambient noise, and hardware issues. Any formal questions or concerns about the content, text or information contained within the body of this dictation should be directly addressed to the provider for clarification.
[2025-07-08 09:58] LABS: Basophils # (Auto) 0.0 Thou/mm3 (0.0-0.2); Basophils % (Auto) 1 % (0-2.5); Eosinophils # (Auto) 0.1 Thou/mm3 (0.0-0.5); Eosinophils % (Auto) 2 % (0-10); Hematocrit 38.6 % (36.0-46.0); Hemoglobin 13.4 g/dL (12.0-16.0); Immature Granulocytes Auto 0.01 Thou/mm3 (0.00-0.00); Lymphocytes # (Auto) 2.0 Thou/mm3 (1.0-4.8); Lymphocytes % (Auto) 37 % (10-50); Mean Corpuscular HGB Conc 34.7 g/dl (31.0-37.0); Mean Corpuscular Hemoglobin 31.0 pg (25.0-35.0); Mean Corpuscular Volume 89 fL (80-100); Monocytes # (Auto) 0.4 Thou/mm3 (0.0-0.8); Monocytes % (Auto) 7 % (0-12); Neutrophils # (Auto) 2.9 Thou/mm3 (1.8-7.7); Neutrophils % (Auto) 53 % (37-80); Nucleated Red Blood Cell # 0.00 Thou/mm3 (0.00-0.00); Nucleated Red Blood Cell % 0 /100 WBC (0); Platelet Count 194 Thou/mm3 (140-440); RDW Standard Deviation 41.4 fL (36.4-46.3); Red Blood Count 4.32 Miln/mm3 (4.00-5.20); White Blood Count 5.4 Thou/mm3 (3.6-11.0)
[2025-07-08 10:19] LABS: Alanine Aminotransferase 19 U/L (10-49); Albumin, Serum 4.4 gm/dL (3.5-5.0); Albumin/Globulin Ratio 1.6 (1.2-2.2); Alkaline Phosphatase 94 U/L (46-116); Anion Gap 9 (7-16); Aspartate Amino Transferase 23 U/L (0-34); BUN/Creatinine Ratio 12 Ratio (12-20); Bilirubin,Total 0.5 mg/dL (0.3-1.2); Blood Urea Nitrogen 7 mg/dL (9-23); Calcium 9.0 mg/dL (8.3-10.6); Calcium (Corrected) 9.0 mg/dL (8.5-10.1); Carbon Dioxide 24.9 mMol/L (20.0-31.0); Chloride 107 mMol/L (98-107); Creatinine (Component) 0.6 mg/dL (0.6-1.3); Globulin 2.7 gm/dL (2.3-3.5); Glucose 96 mg/dL (74-106); Osmolality,Calculated 279 (275-295); Potassium 4.1 mMol/L (3.4-5.1); Sodium 141 mMol/L (136-145); Total Protein 7.1 gm/dL (5.7-8.2); eGFR > 60 See Note
[2025-07-08 10:37] LABS: Carcinoembryonic Antigen 1.1 ng/mL (0.0-5.0)
== END 2025-07-12 23:59 | disposition home or self-care (01) ==
LOC: SCTC 10:41
PROVIDERS: PCP Physician Assistant; Referring Provider Physician Assistant; Visit Provider Internal Medicine Hematology & Oncology
DX: Z51.11 Encounter for antineoplastic chemotherapy (principal); C18.7 Malignant neoplasm of sigmoid colon
CPT/HCPCS: 36591; 80053; 82378; 85025; 96367; 96368; 96411; 96413; 96415; 96416; 99212; A4216; J0640; J1100; J1434; J1642; J2405; J3490; J7050; J7060; J9190; J9263; G0463

== ENCOUNTER 2025-07-26 08:43 | Outpatient (RCR) | payer MEDICAID, SELFPAY ==
[2025-07-24 08:50] LABS: Basophils # (Auto) 0.0 Thou/mm3 (0.0-0.2); Basophils % (Auto) 1 % (0-2.5); Eosinophils # (Auto) 0.1 Thou/mm3 (0.0-0.5); Eosinophils % (Auto) 2 % (0-10); Hematocrit 37.6 % (36.0-46.0); Hemoglobin 12.9 g/dL (12.0-16.0); Immature Granulocytes Auto 0.02 Thou/mm3 (0.00-0.00); Lymphocytes # (Auto) 2.0 Thou/mm3 (1.0-4.8); Lymphocytes % (Auto) 45 % (10-50); Mean Corpuscular HGB Conc 34.3 g/dl (31.0-37.0); Mean Corpuscular Hemoglobin 30.6 pg (25.0-35.0); Mean Corpuscular Volume 89 fL (80-100); Monocytes # (Auto) 0.3 Thou/mm3 (0.0-0.8); Monocytes % (Auto) 6 % (0-12); Neutrophils # (Auto) 2.1 Thou/mm3 (1.8-7.7); Neutrophils % (Auto) 46 % (37-80); Nucleated Red Blood Cell # 0.00 Thou/mm3 (0.00-0.00); Nucleated Red Blood Cell % 0 /100 WBC (0); Platelet Count 146 Thou/mm3 (140-440); RDW Standard Deviation 45.6 fL (36.4-46.3); Red Blood Count 4.21 Miln/mm3 (4.00-5.20); White Blood Count 4.5 Thou/mm3 (3.6-11.0)
[2025-07-24 09:10] LABS: Alanine Aminotransferase 28 U/L (10-49); Albumin, Serum 4.5 gm/dL (3.5-5.0); Albumin/Globulin Ratio 2.1 (1.2-2.2); Alkaline Phosphatase 93 U/L (46-116); Anion Gap 9 (7-16); Aspartate Amino Transferase 22 U/L (0-34); BUN/Creatinine Ratio 20 Ratio (12-20); Bilirubin,Total 0.3 mg/dL (0.3-1.2); Blood Urea Nitrogen 12 mg/dL (9-23); Calcium 9.0 mg/dL (8.3-10.6); Calcium (Corrected) 9.0 mg/dL (8.5-10.1); Carbon Dioxide 24.0 mMol/L (20.0-31.0); Chloride 110 mMol/L (98-107); Creatinine (Component) 0.6 mg/dL (0.6-1.3); Globulin 2.1 gm/dL (2.3-3.5); Glucose 143 mg/dL (74-106); Osmolality,Calculated 286 (275-295); Potassium 3.7 mMol/L (3.4-5.1); Sodium 143 mMol/L (136-145); Total Protein 6.6 gm/dL (5.7-8.2); eGFR > 60 See Note
[2025-07-24 09:16] LABS: Carcinoembryonic Antigen 0.7 ng/mL (0.0-5.0)
[2025-07-24 09:50] LABS: Misc Send Out* See Sep Rpt
== END 2025-08-11 23:59 | disposition home or self-care (01) ==
LOC: SCTC 08:43
PROVIDERS: PCP Physician Assistant; Referring Provider Physician Assistant; Visit Provider Internal Medicine Hematology & Oncology
DX: Z51.11 Encounter for antineoplastic chemotherapy (principal); C18.7 Malignant neoplasm of sigmoid colon
CPT/HCPCS: 80053; 82378; 85025; 96367; 96368; 96411; 96413; 96415; 96416; A4216; J0640; J1100; J1434; J1642; J2405; J3490; J7050; J7060; J9190; J9263

== ENCOUNTER 2025-08-30 08:17 | Outpatient (RCR) | payer MEDICAID, SELFPAY ==
[2025-08-13 12:41] LABS: Basophils # (Auto) 0.0 Thou/mm3 (0.0-0.2); Basophils % (Auto) 0 % (0-2.5); Eosinophils # (Auto) 0.2 Thou/mm3 (0.0-0.5); Eosinophils % (Auto) 4 % (0-10); Hematocrit 38.2 % (36.0-46.0); Hemoglobin 13.4 g/dL (12.0-16.0); Immature Granulocytes Auto 0.01 Thou/mm3 (0.00-0.00); Lymphocytes # (Auto) 2.1 Thou/mm3 (1.0-4.8); Lymphocytes % (Auto) 50 % (10-50); Mean Corpuscular HGB Conc 35.1 g/dl (31.0-37.0); Mean Corpuscular Hemoglobin 31.6 pg (25.0-35.0); Mean Corpuscular Volume 90 fL (80-100); Monocytes # (Auto) 0.6 Thou/mm3 (0.0-0.8); Monocytes % (Auto) 14 % (0-12); Neutrophils # (Auto) 1.3 Thou/mm3 (1.8-7.7); Neutrophils % (Auto) 31 % (37-80); Nucleated Red Blood Cell # 0.00 Thou/mm3 (0.00-0.00); Nucleated Red Blood Cell % 0 /100 WBC (0); Platelet Count 193 Thou/mm3 (140-440); RDW Standard Deviation 50.0 fL (36.4-46.3); Red Blood Count 4.24 Miln/mm3 (4.00-5.20); White Blood Count 4.2 Thou/mm3 (3.6-11.0)
[2025-08-13 13:12] LABS: Alanine Aminotransferase 107 U/L (10-49); Albumin, Serum 4.5 gm/dL (3.5-5.0); Albumin/Globulin Ratio 1.6 (1.2-2.2); Alkaline Phosphatase 100 U/L (46-116); Anion Gap 11 (7-16); Aspartate Amino Transferase 63 U/L (0-34); BUN/Creatinine Ratio 15 Ratio (12-20); Bilirubin,Total 0.3 mg/dL (0.3-1.2); Blood Urea Nitrogen 9 mg/dL (9-23); Calcium 9.2 mg/dL (8.3-10.6); Calcium (Corrected) 9.2 mg/dL (8.5-10.1); Carbon Dioxide 25.4 mMol/L (20.0-31.0); Chloride 106 mMol/L (98-107); Creatinine (Component) 0.6 mg/dL (0.6-1.3); Globulin 2.9 gm/dL (2.3-3.5); Glucose 93 mg/dL (74-106); Osmolality,Calculated 281 (275-295); Potassium 4.2 mMol/L (3.4-5.1); Sodium 142 mMol/L (136-145); Total Protein 7.4 gm/dL (5.7-8.2); eGFR > 60 See Note
[2025-08-13 13:15] LABS: Carcinoembryonic Antigen 1.0 ng/mL (0.0-5.0)
[2025-08-26 12:50] LABS: Basophils # (Auto) 0.0 Thou/mm3 (0.0-0.2); Basophils % (Auto) 0 % (0-2.5); Eosinophils # (Auto) 0.1 Thou/mm3 (0.0-0.5); Eosinophils % (Auto) 2 % (0-10); Hematocrit 36.0 % (36.0-46.0); Hemoglobin 12.5 g/dL (12.0-16.0); Immature Granulocytes Auto 0.02 Thou/mm3 (0.00-0.00); Lymphocytes # (Auto) 2.0 Thou/mm3 (1.0-4.8); Lymphocytes % (Auto) 28 % (10-50); Mean Corpuscular HGB Conc 34.7 g/dl (31.0-37.0); Mean Corpuscular Hemoglobin 31.6 pg (25.0-35.0); Mean Corpuscular Volume 91 fL (80-100); Monocytes # (Auto) 0.6 Thou/mm3 (0.0-0.8); Monocytes % (Auto) 9 % (0-12); Neutrophils # (Auto) 4.3 Thou/mm3 (1.8-7.7); Neutrophils % (Auto) 61 % (37-80); Nucleated Red Blood Cell # 0.00 Thou/mm3 (0.00-0.00); Nucleated Red Blood Cell % 0 /100 WBC (0); Platelet Count 204 Thou/mm3 (140-440); RDW Standard Deviation 48.3 fL (36.4-46.3); Red Blood Count 3.95 Miln/mm3 (4.00-5.20); White Blood Count 7.0 Thou/mm3 (3.6-11.0)
[2025-08-26 12:58] LABS: Alanine Aminotransferase 67 U/L (10-49); Albumin, Serum 4.3 gm/dL (3.5-5.0); Albumin/Globulin Ratio 1.5 (1.2-2.2); Alkaline Phosphatase 101 U/L (46-116); Anion Gap 11 (7-16); Aspartate Amino Transferase 56 U/L (0-34); BUN/Creatinine Ratio 16 Ratio (12-20); Bilirubin,Total 0.3 mg/dL (0.3-1.2); Blood Urea Nitrogen 8 mg/dL (9-23); Calcium 9.0 mg/dL (8.3-10.6); Calcium (Corrected) 9.0 mg/dL (8.5-10.1); Carbon Dioxide 25.0 mMol/L (20.0-31.0); Chloride 106 mMol/L (98-107); Creatinine (Component) 0.5 mg/dL (0.6-1.3); Globulin 2.8 gm/dL (2.3-3.5); Glucose 106 mg/dL (74-106); Osmolality,Calculated 281 (275-295); Potassium 3.7 mMol/L (3.4-5.1); Sodium 142 mMol/L (136-145); Total Protein 7.1 gm/dL (5.7-8.2); eGFR > 60 See Note
[2025-08-26 13:01] LABS: Carcinoembryonic Antigen 0.6 ng/mL (0.0-5.0)
--- NOTE | 2025-08-27 12:39 | CTCFLWUP_ITS ---
Patient: PATRIC ROGERS : 1970 Page 3 of 5 FOLLOW UP NOTE DATE OF SERVICE: 08/27/2025 NAME: PATRIC ROGERS ACCOUNT: [id number] : 1970 AGE: 55 INTERVAL HISTORY: Patient is doing well. She is tolerating chemotherapy well. Patient has no side effects. ONCOLOGY HISTORY: DIAGNOSIS: Malignant neoplasm of sigmoid colon [ICD10] C18.7; Malignant neoplasm of ascending colon [ICD10] C18.2 DATE OF DIAGNOSIS: 10/2024 STAGE/TNM: IIIA T1 N1 M0 TREATMENT HISTORY: Care?Plan Start?Date Cycle Day Intent mFOLFOX-6?-?5FU?400?+?2400?CIV,?LVR?400,OXALIplat?85 06/11/2025 1 14 Curative?(adjuvant) HISTORY OF PRESENT ILLNESS: 55-year-old female with new diagnosis of colon cancer . patient had screening colonoscopy and was diagnosed with cancer . OTHER MEDICAL HISTORY/CONDITIONS: Adenocarcinoma sigmoid colon - dx 09/08/2024 Exploratory Laporotomy; sigmoid resection and promary anastomosis; incidental appendectomy - FAMILY HISTORY: Patient?denies?family?cancer?history. SOCIAL HISTORY: Occupational?History:?Work at [employer] Education?Level:?Completed something less than 8th grade Marital?Status:? 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 5 YRS C NORPLANT X 3 YRS :?3 Live?Births:?3 Age?1st?:?23 MEDICATIONS: 1. Compazine - 5 mg 5 mg Daily 2. fiber - 48.57 % As directed 3. Maalox Advanced - 200-200-20 mg/5 mL 20 mL Daily 4. multivitamin - 2 Capsule Daily 5. nystatin - 100,000 unit/mL 10 mL Daily 6. [place] 3 - [phone] mg 1 Capsule Daily 7. ondansetron - 8 mg 8 mg Daily Medications Last Reconciled by Patric Mesa MD on 08/27/2025 ALLERGIES: No Known Drug Allergies REVIEW OF SYSTEMS: A complete 14-point review of systems was performed and is negative except as noted in interval history. PHYSICAL EXAMINATION: VITAL SIGNS: Temperature?98.4, B/P?152/95, Oxygen?Saturation?96% Weight?166?lbs (Change?since?08/26/25:?-0.8?lbs) PAIN: 0 - No pain ECOG Performance Status: 0 - Asymptomatic and fully active GENERAL APPEARANCE: Appears well, in no apparent distress, appropriately interactive. HEENT: Normocephalic, no temporal wasting, normal conjunctiva, no scleral icterus, normal hearing, lips without lesions, neck normal range of motion. CARDIOVASCULAR: Not assessed. PULMONARY: Normal respiratory effort, no respiratory distress or use of accessory muscles, speaking in full sentences, no tachypnea. EXTREMITIES: No pedal edema or cyanosis. SKIN: Normal skin appearance. NEUROLOGIC: Alert and oriented x4. PSHYCHIATRIC: Appropriate affect, mood normal, behavior normal, intact thought and speech. LABORATORY DATA: I have personally reviewed and interpreted each of the patient?s relevant lab tests, abnormal findings are below: Date 08/13/25 08/26/25 ??WHITE?BLOOD?COUNT?(Thou/mm3) 4.2 7.0 ??RED?BLOOD?COUNT?(Miln/mm3) 4.24 3.95?L ??HEMOGLOBIN?(gm/dl) 13.4 12.5 ??HEMATOCRIT?(%) 38.2 36.0 ??PLATELET?COUNT?(Thou/mm3) 193 204 ??NEUTROPHILS?%,?AUTO?(%) 31?L 61 ??LYMPH?%,?AUTO?(%) 50 28 ??NEUTROPHILS,?AUTO?(Thou/mm3) 1.3?L 4.3 ??GLUCOSE,RANDOM?(mg/dL) ? 106 ??BLOOD?UREA?NITROGEN?(mg/dL) ? 8?L ??CREATININE?(mg/dL) ? 0.50?L ??SODIUM?(mmol/L) ? 142 ??POTASSIUM?(mmol/L) ? 3.7 ??CHLORIDE?(mmol/L) ? 106 ??CrCl?(CandG)?(ml/min) ? 155.42 ??AST/SGOT?(Unit/L) ? 56?H ??ALT/SGPT?(Unit/L) ? 67?H ??ALKALINE?PHOSPHATASE?(Unit/L) ? 101 ??BILIRUBIN,?TOTAL?(mg/dL) ? 0.3 ??PROTEIN?TOTAL?(gm/dl) ? 7.1 ??ALBUMIN,?SERUM?(gm/dl) ? 4.3 ??GLOBULIN?(gm/dl) ? 2.8 ??ALBUMIN/GLOBULIN?RATIO ? 1.5 ??CALCIUM,?SERUM?(mg/dL) ? 9.0 ??CALCIUM?SERUM?(CORRECTED)?(mg/dL) ? 9.0 ??CEA?(O*)?(ng/ml) ? 0.6 ASSESSMENT/PLAN: Stage 3 A colon adenocarcinoma Patient has been on FOLFOX Completed 5 treatments Tolerating well Continue FOLFOX Discussed nausea vomiting protocol Plant-based high-protein diet RTC in 6 to 8 weeks and earlier if any symptoms ORDERS: Order # Description [id number] Follow Up Appointment [id number] Comprehensive Metabolic Panel - 12 + CBC with Auto Diff [id number] Follow Up 2 Months [id number] CEA [id number] Infusion 5 Hours [id number] Discontinue CIV Pump [id number] CBC + Comprehensive Metabolic Panel + CEA [id number] Lab Appointment [id number] Follow Up Appointment [id number] Infusion 5 Hours [id number] Discontinue CIV Pump [id number] CBC + Comprehensive Metabolic Panel + CEA [id number] Lab Appointment [id number] Follow Up Appointment [id number] Infusion 5 Hours [id number] Discontinue CIV Pump [id number] CBC + Comprehensive Metabolic Panel + CEA [id number] Lab Appointment [id number] Follow Up Appointment [id number] Infusion 5 Hours [id number] Discontinue CIV Pump [id number] CBC + Comprehensive Metabolic Panel + CEA [id number] Lab Appointment [id number] Follow Up Appointment [id number] Infusion 5 Hours [id number] Discontinue CIV Pump [id number] CBC + Comprehensive Metabolic Panel + CEA [id number] Lab Appointment [id number] Follow Up Appointment [id number] Infusion 5 Hours [id number] Discontinue CIV Pump [id number] CBC + Comprehensive Metabolic Panel + CEA [id number] Lab Appointment [id number] Follow Up Appointment [id number] Infusion 5 Hours [id number] Discontinue CIV Pump [id number] CBC + Comprehensive Metabolic Panel + CEA [id number] Lab Appointment [id number] Follow Up Appointment RETURN TO CLINIC: I reviewed the diagnosis, prognosis, and recommended treatment/procedure options with the patient (and/or their legal senior sales representative), including the potential benefits, risks, side effects and alternative therapies. We also discussed the option of no treatment and the possibility of clinical trial participation, if applicable. All questions were addressed, and they demonstrated understanding. They provided informed consent to proceed with the proposed plan of care. BILLING AND COMPLIANCE: I reviewed external records from providers outside my specialty as summarized above. I spent a total of 50 minutes on this patient?s care on the day of their visit excluding time spent related to any billed procedures. This time includes time spent with the patient as well as time spent documenting in the medical record, reviewing patients records and tests, obtaining history, placing orders, communicating with other healthcare professionals, counseling the patient, family or caregiver, and/or care coordination for the diagnoses above. Electronically Signed by: Ty Dodge MD T: 12:37 PM CC: Juliet?OCHOA Shelton PCP: Sherlyn Grant Referring: Sherlyn Grant This document was completed utilizing speech recognition software. Grammatical errors, random word insertions, pronoun errors, and incomplete sentences are an occasional consequence of this system due to software limitations, ambient noise, and hardware issues. Any formal questions or concerns about the content, text or information contained within the body of this dictation should be directly addressed to the provider for clarification.
== END 2025-09-11 23:59 | disposition home or self-care (01) ==
LOC: SCTC 08:17
PROVIDERS: PCP Physician Assistant; Referring Provider Physician Assistant; Visit Provider Internal Medicine Hematology & Oncology
DX: Z51.11 Encounter for antineoplastic chemotherapy (principal); C18.7 Malignant neoplasm of sigmoid colon
CPT/HCPCS: 36591; 80053; 82378; 85025; 96367; 96368; 96411; 96413; 96415; 96416; 99212; A4216; J0640; J1100; J1434; J1642; J2405; J3490; J7050; J7060; J9190; J9263; G0463